=== PATIENT | male | born 1980 | race American Indian/Alaskan Native ===

== ENCOUNTER 2017-11-05 22:44 | Emergency (ER) | payer MEDICAID ==
[2017-11-05] MEDS ORDERED: Sodium Chloride 0.9% 10 ML Syringe FLUSH PRN (23:00)
[2017-11-05] MEDS ORDERED: diphenhydrAMINE 50 MG/ML SDV IVPUSH ONE (23:01)
[2017-11-05] MEDS ORDERED: methylPREDNISolone Sodium Succinate 125 MG/2 ML SDV IV ONE (23:01)
[2017-11-05 23:44] LABS: CHLORIDE,CL 108 mmol/L (98-107); SODIUM,NA 143 mmol/L (136-145)
[2017-11-05] MEDS ORDERED: Ketorolac 30 MG/ML SDV IVPUSH ONE (23:58)
[2017-11-06] MEDS ORDERED: Take Home: Ketorolac 10 MG Tab, 4 Tab Pack PO ONE
[2017-11-06] MEDS ORDERED: Take Home: predniSONE 20 MG, 2 Tab Pack PO ONE
--- NOTE | 2017-11-06 22:33 | EDM.PDOC ---
ED HPI GENERAL MEDICAL PROBLEM - General Chief Complaint: Allergic Reaction Stated Complaint: allergic reaction Time Seen by Provider: 11/05/17 22:55 Source of Information: Reports: Patient History Limitations: Reports: No Limitations - History of Present Illness INITIAL COMMENTS - FREE TEXT/NARRATIVE: Pt. states that he took 10 mg of haldol and shortly thereafter developed onset of L sided tongue and lip swelling, as well as muscle spasms and involuntary movements to his jaw. Pt. has a history of similar symptoms when he has taken compazine. He denies any throat tightness, wheezing, or shortness of breath. Pt. states that the symptoms started approx. 20 min after taking the medication. He denies any substernal chest pain and starts that he does have muscle spasms in his L anterior chest that extend up into his anterior neck and jaw. He has never been formally diagnosed with tardive dyskinesia or dystonic reaction, but describes symptoms of this in the past, particularly associated with the consumption of first generation antipsychotic medications and other phenothiazines. Location: Reports: Head, Neck, Chest Quality: Reports: Ache, Throbbing Severity: Moderate Chest Pain Score (Numeric/FACES): 10 - Related Data Allergies Allergy/AdvReac Type Severity Reaction Status Date / Time prochlorperazine Allergy Seizure Verified 11/05/17 23:03 [From Compazine] Home Meds: Home Meds Benztropine [Cogentin] 1 mg PO QID PRN 11/05/17 [History] Divalproex Sodium 2 tab PO BEDTIME 11/05/17 [History] Escitalopram [Lexapro] 10 mg PO DAILY 11/05/17 [History] Gabapentin [Neurontin] 1 tab PO TID 11/05/17 [History] Haloperidol [Haldol] 1 tab PO QID PRN 11/05/17 [History] Past Medical History Cardiovascular History: Reports: Other (See Below) Other Cardiovascular History: bradycardia. Is supposed to make appt with cardiology next week to discuss a pacemaker. Psychiatric History: Reports: Addiction, Schizophrenia Social & Family History - Tobacco Use Smoking Status *Q: Current Every Day Smoker Years of Tobacco use: 33 Packs/Tins Daily: 0.7 - Recreational Drug Use Recreational Drug Use: Yes Drug Use in Last 12 Months: Yes Recreational Drug Type: Reports: Barbituates, Cocaine, Heroin, Methamphetamine ED ROS GENERAL - Review of Systems Review Of Systems: See Below Constitutional: Reports: No Symptoms HEENT: Reports: Other (See HPI. Complains of facial tics and jaw/neck pain as well as facial swelling) Respiratory: Reports: No Symptoms Cardiovascular: Reports: No Symptoms Endocrine: Reports: No Symptoms GI/Abdominal: Reports: No Symptoms : Reports: No Symptoms Musculoskeletal: Reports: No Symptoms Skin: Reports: No Symptoms Neurological: Reports: Tremors, Other (please see HPI). Denies: Confusion, Dizziness, Headache, Paresthesia, Seizure, Syncope, Trouble Speaking, Difficulty Walking, Weakness, Change in Speech, Gait Disturbance Psychiatric: Reports: Other (History of depression and anxiety, previously was IV meth, cocaine, and heroin user, recently completed treatment). Denies: Agitation, Anxiety, Confusion, Cravings, Depression, Hallucinations, Homicidal Ideation, Mood Lability, Suicidal Ideation Hematologic/Lymphatic: Reports: No Symptoms Immunologic: Reports: No Symptoms ED EXAM, GENERAL - Physical Exam Exam: See Below Exam Limited By: No Limitations General Appearance: Alert, WD/WN, No Apparent Distress Eye Exam: Bilateral Eye: EOMI, Normal Fundi, Normal Inspection, PERRL Ears: Normal External Exam, Normal Canal, Hearing Grossly Normal, Normal TMs Ear Exam: Bilateral Ear: Auricle Normal, Canal Normal, TM normal Nose: Normal Inspection, Normal Mucosa, No Blood Throat/Mouth: Normal Gums, Normal Voice, No Airway Compromise, Other Head: Atraumatic, Facial Swelling (R sided lip and tongue edema, mild) Neck: Supple, Tender Lateral (L lateral neck discomfort/muscle spasm). No: Limited Range of Motion, Lymphadenopathy (L), Lymphadenopathy (R) Respiratory/Chest: No Respiratory Distress, Lungs Clear, Normal Breath Sounds, No Accessory Muscle Use, Chest Non-Tender Cardiovascular: Normal Peripheral Pulses, Regular Rate, Rhythm, No Edema, No Gallop, No JVD, No Murmur, No Rub GI/Abdominal: Normal Bowel Sounds, Soft, Non-Tender, No Organomegaly, No Distention, No Abnormal Bruit, No Mass (Male) Exam: Deferred Rectal (Males) Exam: Deferred Back Exam: Normal Inspection, Full Range of Motion, NT Extremities: Normal Inspection, Normal Range of Motion, Non-Tender, Normal Capillary Refill, No Pedal Edema Neurological: Alert, Oriented, CN II-XII Intact, Normal Cognition, Normal Gait, Normal Reflexes, No Motor/Sensory Deficits Psychiatric: Normal Affect, Normal Mood Skin Exam: Warm, Dry, Intact, Normal Color, No Rash Course - Vital Signs Last Recorded V/S: Last Vital Signs Temp 36.9 C 11/05/17 22:55 Pulse 59 L 11/05/17 22:55 Resp 20 11/05/17 22:55 BP 147/77 H 11/05/17 22:55 Pulse Ox 97 11/05/17 22:55 - Orders/Labs/Meds Orders: Active Orders 24 hr Category Date Time Status EKG Documentation Completion [RC] STAT Care 11/05/17 23:01 Active Peripheral IV Insertion Adult [OM.PC] Routine Oth 11/05/17 23:01 Ordered Labs: Laboratory Tests 11/05/17 11/05/17 11/05/17 Range/Units 23:15 23:15 23:15 WBC 11.0 H (4.0-10.0) x10^3/uL RBC 3.90 L (4.5-6.0) x10^6/uL Hgb 13.4 L (14.0-18.0) g/dL Hct 39.2 L (40.0-52.0) % MCV 100.5 H (78.0-93.0) fL MCH 34.4 H (26.0-32.0) pg MCHC 34.2 (32.0-36.0) g/dL RDW Coeff of Linda 12.5 (10.0-15.0) % Plt Count 235 (130-400) x10^3/uL Neut % (Auto) 67.0 (50.0-80.0) % Lymph % (Auto) 24.0 L (25.0-50.0) % [place] % (Auto) 7.4 (2.0-11.0) % Eos % (Auto) 1.1 (0.0-4.0) % Baso % (Auto) 0.5 (0.2-1.2) % PT 10.6 (9.8-11.8) SEC INR 1.0 L (2.0-3.5) Sodium 143 (136-145) mmol/L Potassium 3.9 (3.5-5.1) mmol/L Chloride 108 H (98-107) mmol/L Carbon Dioxide 25 (21-32) mmol/L Anion Gap 13.9 BUN 14 (7-18) mg/dL Creatinine 1.1 (0.70-1.30) mg/dL Est Cr Clr Drug Dosing 120.02 mL/min Estimated GFR (MDRD) > 60 Glucose 94 (74-106) mg/dL Calcium 9.0 (8.5-10.1) mg/dL Corrected Calcium 8.92 (8.5-10.1) mg/dL Total Bilirubin 0.4 (0.2-1.0) mg/dL AST 10 L (15-37) U/L ALT 15 L (16-63) U/L Alkaline Phosphatase 86 (46-116) U/L Troponin I < 0.017 (<=0.056) ng/mL Total Protein 7.9 (6.4-8.2) g/dL Albumin 4.1 (3.4-5.0) g/dL Globulin 3.8 Albumin/Globulin Ratio 1.08 Meds: Medications Discontinued Medications Generic Name Dose Route Start Last Admin Trade Name Freq PRN Reason Stop Dose Admin Diphenhydramine HCl 50 mg 11/05/17 23:01 11/05/17 23:06 Benadryl IVPUSH 11/05/17 23:02 50 mg ONETIME ONE Administration Ketorolac Tromethamine 30 mg 11/05/17 23:58 11/06/17 00:04 Toradol IVPUSH 11/05/17 23:59 30 mg ONETIME ONE Administration Ketorolac Tromethamine 1 packet 11/06/17 00:00 11/06/17 00:06 Take Home: Ketorolac 10 Mg, 4 Tab Pack PO 11/06/17 00:01 1 packet ONETIME ONE Administration Methylprednisolone Sodium Succinate 125 mg 11/05/17 23:01 11/05/17 23:06 Solu-Medrol IV 11/05/17 23:02 125 mg ONETIME ONE Administration Prednisone 1 packet 11/06/17 00:00 11/06/17 00:06 Take Home: Prednisone 20 Mg, 2 Tab Pack PO 11/06/17 00:01 1 packet ONETIME ONE Administration Sodium Chloride 10 ml 11/05/17 23:00 Saline Flush FLUSH ASDIRECTED PRN Keep Vein Open Departure - Departure Time of Disposition: 00:24 Disposition: Home, Self-Care 01 Condition: Good Clinical Impression: Acute dystonic reaction due to drugs, Angioedema - Discharge Information Instructions: Angioedema, [id number], Dystonic Reaction Referrals: PCP,None [Primary Care Provider] - Forms: ED Department Discharge Additional Instructions: Toradol 10mg every 6 hours as needed for pain Prednisone 40mg daily Benadryl 50mg every 4-6 hours Follow-up in clinic in 7-10 days Avoid phenothiazine medications. Haldol is very closely related to compazine ( prochlorperazine), phenergan (promethazine), and thorazine (chlorpromazine). I think you should avoid this class of medications altogether. - My Orders Last 24 Hours: My Active Orders 11/05/17 23:01 EKG Documentation Completion [RC] STAT Peripheral IV Insertion Adult [OM.PC] Routine - Assessment/Plan Last 24 Hours: My Active Orders 11/05/17 23:01 EKG Documentation Completion [RC] STAT Peripheral IV Insertion Adult [OM.PC] Routine
== END 2017-11-06 00:24 | disposition home or self-care (01) ==
LOC: VM.ED 22:44
DX: G24.02 Drug induced acute dystonia (principal); T43.4X5A Adverse effect of butyrophenone and thiothixene neuroleptics, initial encounter; T78.3XXA Angioneurotic edema, initial encounter; Z88.8 Allergy status to other drugs, medicaments and biological substances; F17.210 Nicotine dependence, cigarettes, uncomplicated; Z79.899 Other long term (current) drug therapy
CPT/HCPCS: 36415; 80053; 84484; 85025; 85610; 93005; 96374; 96375; 99284; A9270; J1200; J1885; J2930

== ENCOUNTER 2017-12-06 02:55 | Emergency (ER) | payer MEDICAID | END 2017-12-06 03:15 | disposition other institution (70) | LOC: VM.ED 02:55 | DX: F10.129 Alcohol abuse with intoxication, unspecified (principal); Z59.0 Homelessness; Z88.8 Allergy status to other drugs, medicaments and biological substances; Z79.899 Other long term (current) drug therapy | CPT/HCPCS: 99283 ==

== ENCOUNTER 2019-11-26 09:24 | Emergency (ER) | payer MEDICAID ==
[2019-11-26 10:44] LABS: CHLORIDE,CL 106 mmol/L (98-107); SODIUM,NA 144 mmol/L (136-145)
[2019-11-26 10:49] LABS: ACETAMINOPHEN 0 ug/ml (10-30)
[2019-11-26 11:33] LABS: BARBITURATE SCREEN,URINE NEGATIVE (NEGATIVE); BENZODIAZEPINES SCREEN,URINE NEGATIVE (NEGATIVE); EDDP,URINE SCREEN NEGATIVE (NEGATIVE); METHAMPHETAMINE SCREEN, URINE POSITIVE (NEGATIVE); TCA SCREEN,URINE NEGATIVE (NEGATIVE); THC SCREEN,URINE 50 NG/ML POSITIVE (NEGATIVE)
--- NOTE | 2019-11-26 12:04 | EDM.PDOCBH ---
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 [No Known Home Meds] 11/26/19 [History] Past Medical History Cardiovascular History: Reports: Other (See Below) Other Cardiovascular History: bradycardia. Psychiatric History: Reports: Addiction, Bipolar, Schizophrenia, Suicidal Ideation, Other (See Below) Other Psychiatric History: cutting Social & Family History - Tobacco Use Smoking Status *Q: Current Every Day Smoker Years of Tobacco use: 20 Packs/Tins Daily: 1 - Recreational Drug Use Recreational Drug Use: Yes Drug Use in Last 12 Months: Yes Recreational Drug Type: Reports: Amphetamines (Speed), Marijuana/Hashish Recreational Drug Use Frequency: Daily ED ROS GENERAL - Review of Systems Review Of Systems: See Below Constitutional: Reports: No Symptoms HEENT: Reports: No Symptoms Respiratory: Reports: No Symptoms Cardiovascular: Reports: No Symptoms GI/Abdominal: Reports: No Symptoms Musculoskeletal: Reports: No Symptoms Neurological: Reports: No Symptoms Psychiatric: Reports: Agitation, Anxiety, Depression, Mood Lability (drug use) ED EXAM, BEHAVIORAL HEALTH - Physical Exam Exam: See Below Exam Limited By: No Limitations General Appearance: Mild Distress Respiratory/Chest: Lungs Clear Cardiovascular: Regular Rate, Rhythm GI/Abdominal: Soft Extremities: Normal Inspection Neurological: Alert, Normal Cognition, No Motor/Sensory Deficits, Oriented x 3 Psychiatric: Depressed Mood, Flat Affect, Withdrawn, Auditory Hallucinations COURSE, BEHAVIORAL HEALTH COMP - Course Vital Signs: Last Vital Signs Temp 97.9 F 11/26/19 09:30 Pulse 97 11/26/19 09:30 Resp 18 11/26/19 09:30 BP 156/102 H 11/26/19 09:30 Pulse Ox 95 11/26/19 09:30 Orders, Labs, Meds: Active Orders 24 hr Category Date Time Status SALICYLATE [REF] Stat Lab 11/26/19 10:08 Received Laboratory Tests 11/26/19 11/26/19 11/26/19 Range/Units 10:08 10:08 11:19 WBC 13.2 H (4.0-10.0) x10^3/uL RBC 4.29 L (4.5-6.0) x10^6/uL Hgb 13.7 L (14.0-18.0) g/dL Hct 39.6 L (40.0-52.0) % MCV 92.3 D (78.0-93.0) fL MCH 31.9 (26.0-32.0) pg MCHC 34.6 (32.0-36.0) g/dL RDW Coeff of Linda 14.4 (10.0-15.0) % Plt Count 251 (130-400) x10^3/uL Neut % (Auto) 62.8 (50.0-80.0) % Lymph % (Auto) 23.9 L (25.0-50.0) % [place] % (Auto) 11.9 H (2.0-11.0) % Eos % (Auto) 0.3 (0.0-4.0) % Baso % (Auto) 1.1 (0.2-1.2) % Sodium 144 (136-145) mmol/L Potassium 4.0 (3.5-5.1) mmol/L Chloride 106 (98-107) mmol/L Carbon Dioxide 22 (21-32) mmol/L Anion Gap 20.0 (10-20) mmol/L BUN 15 (7-18) mg/dL Creatinine 1.2 (0.70-1.30) mg/dL Est Cr Clr Drug Dosing TNP Estimated GFR (MDRD) > 60 Glucose 106 (74-106) mg/dL Calcium 9.2 (8.5-10.1) mg/dL Corrected Calcium 8.96 (8.5-10.1) mg/dL Total Bilirubin 0.6 (0.2-1.0) mg/dL AST 29 (15-37) U/L ALT 15 L (16-63) U/L Alkaline Phosphatase 74 (46-116) U/L Total Protein 8.0 (6.4-8.2) g/dL Albumin 4.3 (3.4-5.0) g/dL Globulin 3.7 Albumin/Globulin Ratio 1.16 TSH, Ultra Sensitive 3.549 (0.358-3.74) uIU/mL Urine Opiates Screen Negative (NEAGTIVE) Ur Buprenorphine Scrn Negative (NEGATIVE) Ur Oxycodone Screen Negative (NEGATIVE) Ur EDDP (Meth Metab) Negative (NEGATIVE) Urine Methadone Screen Negative (NEGATIVE) Acetaminophen 0 L (10-30) ug/ml Ur Barbiturates Screen Negative (NEGATIVE) Ur Tricyclics Screen Negative (NEGATIVE) Ur Phencyclidine Scrn Negative (NEGATIVE) Ur Amphetamine Screen Positive H (NEGATIVE) U Methamphetamines Scrn Positive H (NEGATIVE) Urine MDMA Screen Negative (NEGATIVE) U Benzodiazepines Scrn Negative (NEGATIVE) U Cocaine Metab Screen Negative (NEGATIVE) U Marijuana (THC) Screen Positive H (NEGATIVE) Ethyl Alcohol < 3 (0-3) mg/dL Re-Assessment/Re-Exam: See lab D/W Dr Goran Cartagena [place] on-call psych Will accept in transfer Departure - Departure Time of Disposition: 12:15 Disposition: DC/Tfer to Psych Hosp/Unit 65 Clinical Impression: Hallucinations, Drug abuse - Discharge Information *COPY OF PRESCRIPTION DRUG MONITORING REPORT IN PATIENT EMMETT: Not Applicable Referrals: PCP,None [Primary Care Provider] - Forms: ED Department Discharge, Interfacility Transfer [facility] Sepsis Event Note - Evaluation Sepsis Screening Result: No Definite Risk - Focused Exam Vital Signs: Vital Signs Temp Pulse Resp BP Pulse Ox 11/26/19 09:30 97.9 F 97 18 156/102 H 95 Date Exam was Performed: 11/26/19 Time Exam was Performed: 11:59 - My Orders Last 24 Hours: My Active Orders 11/26/19 10:08 SALICYLATE [REF] Stat - Assessment/Plan Last 24 Hours: My Active Orders 11/26/19 10:08 SALICYLATE [REF] Stat
== END 2019-11-26 12:50 ==
LOC: VM.ED 09:24
DX: R44.3 Hallucinations, unspecified (principal); F15.10 Other stimulant abuse, uncomplicated; F12.10 Cannabis abuse, uncomplicated; F19.10 Other psychoactive substance abuse, uncomplicated; F17.210 Nicotine dependence, cigarettes, uncomplicated; Z88.8 Allergy status to other drugs, medicaments and biological substances; Z88.5 Allergy status to narcotic agent
CPT/HCPCS: 36415; 80053; 80305-QW; 80307; 84443; 85025; 99285

== ENCOUNTER 2020-06-30 01:42 | Emergency (ER) | payer MEDICAID ==
--- NOTE | 2020-06-30 02:39 | EDM.PDOC ---
ED HPI GENERAL MEDICAL PROBLEM - General Chief Complaint: Behavioral/Psych Stated Complaint: psych complaints Time Seen by Provider: 06/30/20 01:45 Source of Information: Reports: Patient History Limitations: Reports: No Limitations - History of Present Illness INITIAL COMMENTS - FREE TEXT/NARRATIVE: Pt. presents to ER via [facility]. Pt. called 911, stating that he has been experien cing visual and auditory hallucinations. He has a longstanding history of schizoaffective disorder, bipolar type with severe polysubstance abuse. Pt. was hospitalized at [facility] for suicidal ideation and acute psychosis from 06-21-2020 until 06-22-2020 for similar problems. He was started on olanzapine 10mg at bedtime and he was sent up with [facility]. He was subsequently discharged, as he was not actively participating and poorly cooperative. Pt. states that he has not been taking the olanzapine, as it causes him to feel like his heart rate is decreasing. Since he was discharged from [facility], he was given a taxi voucher to [place]. From there, his brother picked him up and brought him to [place], [place]. He was also seen in the ER there. He was was not taking his medication and had been using meth again. He was given IM ativan and zyprexa and was set up on a crisis call through the hospital in [place], but did not participate in the call and was discharged, according to patient. Pt. states that he was driven back to [place]. His brother again picked him up and brought him to [place], where he has close friends that he has known for 18 years. It was from their residence that the patient called the police. On arrival to ER, pt. thought process is very concrete. He has an excellent understanding of his mental health problems and addiction history. According to information gleaned from his last admission, he has been hospitalized over 18 times since 2014. The last time he was in the [facility] hospital was in 2004. He is quite paranoid, writing notes stating that people are able to listen to him speak and that his ex and her friends from [place] want to "taze him". Pt. states that he always feels somewhat suicidal; when asked if he actively felt like he wanted to harm himself, he stated yes, he would either cut himself with a knife of overdose on medication. He states that he also sees spirits in addition to hearing voices. This is similar to what he reported to psychiatry in [place]. Pt. states that he last used methamphetamine 24 hours ago, and states he is drinking today. Onset: Today - Related Data Allergies Allergy/AdvReac Type Severity Reaction Status Date / Time divalproex sodium Allergy Seizure Verified 06/30/20 02:04 [From Depakote] haloperidol Allergy Seizure Verified 06/30/20 02:04 hydrocodone Allergy Swelling Verified 06/30/20 02:04 prochlorperazine Allergy Seizure Verified 06/30/20 02:04 [From Compazine] Home Meds: Home Meds . [No Known Home Meds] 11/26/19 [History] Past Medical History Cardiovascular History: Reports: Other (See Below) Other Cardiovascular History: bradycardia. Psychiatric History: Reports: Addiction, Bipolar, Schizophrenia, Suicidal Ideation, Other (See Below) Other Psychiatric History: cutting Social & Family History - Tobacco Use Tobacco Use Status *Q: Current Status Unknown ED ROS GENERAL - Review of Systems Review Of Systems: See Below Constitutional: Reports: No Symptoms HEENT: Reports: No Symptoms Respiratory: Reports: No Symptoms Cardiovascular: Reports: No Symptoms Endocrine: Reports: No Symptoms GI/Abdominal: Reports: No Symptoms : Reports: No Symptoms Musculoskeletal: Reports: No Symptoms Skin: Reports: No Symptoms Neurological: Reports: No Symptoms Psychiatric: Reports: Agitation, Anxiety, Hallucinations, Suicidal Ideation Hematologic/Lymphatic: Reports: No Symptoms Immunologic: Reports: No Symptoms ED EXAM, GENERAL - Physical Exam Exam: See Below Exam Limited By: No Limitations General Appearance: Alert, WD/WN, No Apparent Distress Head: Atraumatic, Normocephalic Respiratory/Chest: No Respiratory Distress, Lungs Clear, No Accessory Muscle Use, Chest Non-Tender Cardiovascular: Normal Peripheral Pulses, Regular Rate, Rhythm, No JVD Extremities: Normal Inspection, Normal Range of Motion, Normal Capillary Refill Neurological: Alert, Oriented, CN II-XII Intact, Normal Cognition, Normal Gait, No Motor/Sensory Deficits Psychiatric: Anxious, Flat Affect Skin Exam: Warm, Dry, Intact, Normal Color, No Rash Course - Vital Signs Last Recorded V/S: Last Vital Signs Temp 36.6 C 06/30/20 01:45 Pulse 84 06/30/20 01:45 Resp 18 06/30/20 01:45 BP 128/83 06/30/20 01:45 Pulse Ox 95 06/30/20 01:45 - Orders/Labs/Meds Labs: Laboratory Tests 06/30/20 06/30/20 06/30/20 Range/Units 02:15 02:35 02:35 WBC 10.7 H (4.0-10.0) x10^3/uL RBC 4.18 L (4.5-6.0) x10^6/uL Hgb 13.4 L (14.0-18.0) g/dL Hct 38.2 L (40.0-52.0) % MCV 91.4 (78.0-93.0) fL MCH 32.1 H (26.0-32.0) pg MCHC 35.1 (32.0-36.0) g/dL RDW Coeff of Linda 12.1 (10.0-15.0) % Plt Count 250 (130-400) x10^3/uL Neut % (Auto) 64.1 (50.0-80.0) % Lymph % (Auto) 25.8 (25.0-50.0) % [place] % (Auto) 8.3 (2.0-11.0) % Eos % (Auto) 1.1 (0.0-4.0) % Baso % (Auto) 0.7 (0.2-1.2) % PT 10.2 (9.5-12.3) SEC INR 0.9 L (2.0-3.5) Sodium (136-145) mmol/L Potassium (3.5-5.1) mmol/L Chloride (98-107) mmol/L Carbon Dioxide (21-32) mmol/L Anion Gap (10-20) mmol/L BUN (7-18) mg/dL Creatinine (0.70-1.30) mg/dL Est Cr Clr Drug Dosing Estimated GFR (MDRD) Glucose (74-106) mg/dL Calcium (8.5-10.1) mg/dL Corrected Calcium (8.5-10.1) mg/dL Magnesium (1.8-2.4) mg/dL Total Bilirubin (0.2-1.0) mg/dL AST (15-37) U/L ALT (16-63) U/L Alkaline Phosphatase (46-116) U/L Total Protein (6.4-8.2) g/dL Albumin (3.4-5.0) g/dL Globulin Albumin/Globulin Ratio TSH, Ultra Sensitive (0.358-3.74) uIU/mL Urine Color (YELLOW) Urine Appearance (CLEAR) Urine pH (5.0-8.0) Ur Specific [place] Urine Protein (NEGATIVE) mg/dL Urine Glucose (UA) (NEGATIVE) mg/dL Urine Ketones (NEGATIVE) mg/dL Urine Occult Blood (NEGATIVE) Urine Nitrite (NEGATIVE) Urine Bilirubin (NEGATIVE) Urine Urobilinogen (0.2) EU/dL Ur Leukocyte Esterase (NEGATIVE) Urine Opiates Screen (NEAGTIVE) Ur Buprenorphine Scrn (NEGATIVE) Ur Oxycodone Screen (NEGATIVE) Ur EDDP (Meth Metab) (NEGATIVE) Urine Methadone Screen (NEGATIVE) Acetaminophen (10-30) ug/ml Ur Barbiturates Screen (NEGATIVE) Ur Tricyclics Screen (NEGATIVE) Ur Phencyclidine Scrn (NEGATIVE) Ur Amphetamine Screen (NEGATIVE) U Methamphetamines Scrn (NEGATIVE) Urine MDMA Screen (NEGATIVE) U Benzodiazepines Scrn (NEGATIVE) U Cocaine Metab Screen (NEGATIVE) U Marijuana (THC) Screen (NEGATIVE) Ethyl Alcohol (0-3) mg/dL SARS CoV-2 RNA Rapid JOANNA Negative (NEGATIVE) 06/30/20 06/30/20 06/30/20 Range/Units 02:35 02:48 02:48 WBC (4.0-10.0) x10^3/uL RBC (4.5-6.0) x10^6/uL Hgb (14.0-18.0) g/dL Hct (40.0-52.0) % MCV (78.0-93.0) fL MCH (26.0-32.0) pg MCHC (32.0-36.0) g/dL RDW Coeff of Linda (10.0-15.0) % Plt Count (130-400) x10^3/uL Neut % (Auto) (50.0-80.0) % Lymph % (Auto) (25.0-50.0) % [place] % (Auto) (2.0-11.0) % Eos % (Auto) (0.0-4.0) % Baso % (Auto) (0.2-1.2) % PT (9.5-12.3) SEC INR (2.0-3.5) Sodium 133 L (136-145) mmol/L Potassium 3.7 (3.5-5.1) mmol/L Chloride 97 L (98-107) mmol/L Carbon Dioxide 25 (21-32) mmol/L Anion Gap 14.7 (10-20) mmol/L BUN 10 (7-18) mg/dL Creatinine 1.1 (0.70-1.30) mg/dL Est Cr Clr Drug Dosing TNP Estimated GFR (MDRD) > 60 Glucose 100 (74-106) mg/dL Calcium 8.4 L (8.5-10.1) mg/dL Corrected Calcium 8.32 L (8.5-10.1) mg/dL Magnesium 1.9 (1.8-2.4) mg/dL Total Bilirubin 0.4 (0.2-1.0) mg/dL AST 29 (15-37) U/L ALT 43 (16-63) U/L Alkaline Phosphatase 95 (46-116) U/L Total Protein 7.5 (6.4-8.2) g/dL Albumin 4.1 (3.4-5.0) g/dL Globulin 3.4 Albumin/Globulin Ratio 1.21 TSH, Ultra Sensitive 1.633 (0.358-3.74) uIU/mL Urine Color Light yellow (YELLOW) Urine Appearance Clear (CLEAR) Urine pH 6.5 (5.0-8.0) Ur Specific [place] 1.010 Urine Protein Negative (NEGATIVE) mg/dL Urine Glucose (UA) Negative (NEGATIVE) mg/dL Urine Ketones Negative (NEGATIVE) mg/dL Urine Occult Blood Negative (NEGATIVE) Urine Nitrite Negative (NEGATIVE) Urine Bilirubin Negative (NEGATIVE) Urine Urobilinogen 0.2 (0.2) EU/dL Ur Leukocyte Esterase Negative (NEGATIVE) Urine Opiates Screen Negative (NEAGTIVE) Ur Buprenorphine Scrn Negative (NEGATIVE) Ur Oxycodone Screen Negative (NEGATIVE) Ur EDDP (Meth Metab) Negative (NEGATIVE) Urine Methadone Screen Negative (NEGATIVE) Acetaminophen 0 L (10-30) ug/ml Ur Barbiturates Screen Negative (NEGATIVE) Ur Tricyclics Screen Negative (NEGATIVE) Ur Phencyclidine Scrn Negative (NEGATIVE) Ur Amphetamine Screen Positive H (NEGATIVE) U Methamphetamines Scrn Positive H (NEGATIVE) Urine MDMA Screen Negative (NEGATIVE) U Benzodiazepines Scrn Positive H (NEGATIVE) U Cocaine Metab Screen Negative (NEGATIVE) U Marijuana (THC) Screen Negative (NEGATIVE) Ethyl Alcohol 74 H (0-3) mg/dL SARS CoV-2 RNA Rapid JOANNA (NEGATIVE) Meds: Medications Discontinued Medications Generic Name Dose Route Start Last Admin Trade Name Freq PRN Reason Stop Dose Admin Olanzapine 10 mg 06/30/20 02:41 06/30/20 02:50 Zyprexa IM 06/30/20 02:42 10 mg ONETIME ONE Administration Departure - Departure Time of Disposition: 03:50 Disposition: DC/Tfer to Psych Hosp/Unit 65 Clinical Impression: Schizoaffective disorder, Psychosis - Discharge Information Forms: ED Department Discharge Sepsis Event Note (ED) - Evaluation Sepsis Screening Result: No Definite Risk - Focused Exam Vital Signs: Vital Signs Temp Pulse Resp BP Pulse Ox 06/30/20 01:45 36.6 C 84 18 128/83 95 - Assessment/Plan Plan: Pt. will be transported to [facility]. Spoke with patrick Erwin at the [facility] who accepts patient in transfer. Continue medications he was discharged with from [place] (see attached order). Start zyprexa this evening, as he was given 10mg IM here in ER. Pt. will be transported via [facility]. Transport order signed.
[2020-06-30] MEDS ORDERED: OLANZapine 10 MG Vial IM ONE (02:41)
[2020-06-30 03:04] LABS: BARBITURATE SCREEN,URINE NEGATIVE (NEGATIVE); BENZODIAZEPINES SCREEN,URINE POSITIVE (NEGATIVE); EDDP,URINE SCREEN NEGATIVE (NEGATIVE); METHAMPHETAMINE SCREEN, URINE POSITIVE (NEGATIVE); TCA SCREEN,URINE NEGATIVE (NEGATIVE); THC SCREEN,URINE 50 NG/ML NEGATIVE (NEGATIVE)
[2020-06-30 03:13] LABS: CHLORIDE,CL 97 mmol/L (98-107); SODIUM,NA 133 mmol/L (136-145)
[2020-06-30 03:18] LABS: ANION GAP 14.7 mmol/L (10-20)
[2020-06-30 03:20] LABS: ACETAMINOPHEN 0 ug/ml (10-30)
== END 2020-06-30 03:55 ==
LOC: VM.ED 01:42
DX: F25.9 Schizoaffective disorder, unspecified (principal); Z20.828 Contact with and (suspected) exposure to other viral communicable diseases; Z88.5 Allergy status to narcotic agent; Z88.8 Allergy status to other drugs, medicaments and biological substances
CPT/HCPCS: 36415; 80053; 80305-QW; 80307; 81003; 83735; 84443; 85025; 85610; 96372; 99284; 99285; J3490; U0002